=== PATIENT | male | born 1995 | race Caucasian/White ===

== ENCOUNTER 2017-04-30 16:24 | Emergency (ER) | payer BC, OTHER ==
[~2017-04-30] VITALS: Ht 185.4 cm; Wt 80.0 kg
[2017-04-30 16:25] VITALS: BP 155/95; PULSE 63; RESP 15; TEMP 98.6; O2SAT 100
[2017-04-30] MEDS ORDERED: VANCOMYCIN INJ 1,000 MG in SODIUM CHLOR 0.9% 250 ML INJ 250 ML IV ONE (19:30)
[2017-04-30] MEDS ORDERED: BACT800T5 PO (19:36)
[2017-04-30] MEDS ORDERED: CEPH-460 PO (19:36)
--- NOTE | 2017-04-30 19:36 | PD ---
HPI Chief Complaint: Skin Problem Time Seen by Provider: 19:20 Travel History International Travel<30 days: No Contact w/Intl Traveler<30days: No Traveled to known affect area: No History of Present Illness HPI 22-year-old male sent in by his primary care physician for evaluation of left forearm infection. The patient first noticed the area of infection about 2 days ago and states this started out as a small pimple. He squeezed the area and it has become larger. He had a tattoo performed on his left forearm about a month ago and had an abscess to his left elbow shortly after. He is here with report of a wound culture that was performed on 03/01/17 by his primary care physician that grew out MRSA that was sensitive to vancomycin and Bactrim. Pain is moderate, worse with palpation. He denies fevers or chills. No history of IVDU. His primary care physician evaluated him in the office and recommended that he present to the emergency department for evaluation and possible IV antibiotics. PFSH Past Medical History Autoimmune Disease: No Blood Disorders: No Anxiety: No Depression: No Cardiovascular Problems: No Genitourinary: No Headaches: Yes Musculoskeletal: No Neurologic: No Psychiatric: No Respiratory: No Past Surgical History Genitourinary Surgery: Yes (KIDNEY STONE) Other Surgery: Yes Social History Alcohol Use: No Tobacco Use: No Substance Use: No Allergies-Medications (Allergen,Severity, Reaction): Coded Allergies: morphine (Verified Allergy, Unknown, 04/30/17) Reported Meds & Prescriptions Reported Meds & Active Scripts Active Keflex (Cephalexin) 500 Mg Cap 500 Mg PO Q8H Bactrim DS (Sulfamethoxazole-Trimethoprim) 800-160 Mg Tab 1 Tab PO BID 10 Days Review of Systems Except as stated in HPI: all other systems reviewed are Neg Physical Exam Narrative GENERAL: Well-developed, well-nourished, comfortable, no acute distress. SKIN: Left anterior forearm with area of induration, warmth, and erythema proximally with a small pustule at the center, no fluctuance, no red streaks, no crepitus. HEAD: Atraumatic. Normocephalic. EYES: Pupils equal and round. No scleral icterus. No injection or drainage. ENT: Mucous membranes pink and moist. NECK: Trachea midline. No JVD. CARDIOVASCULAR: Regular rate and rhythm. Bilateral distal radial pulses are brisk and equal. No murmur. RESPIRATORY: No accessory muscle use. Clear to auscultation. Breath sounds equal bilaterally. MUSCULOSKELETAL: Skin exam as above. No obvious deformities. No clubbing. No cyanosis. No edema. NEUROLOGICAL: Awake and alert. No obvious cranial nerve deficits. Motor grossly within normal limits. Normal speech. PSYCHIATRIC: Appropriate mood and affect; insight and judgment normal. Data Data Last Documented VS Vital Signs Date Time Temp Pulse Resp B/P (MAP) Pulse Ox O2 Delivery O2 Flow Rate FiO2 04/30/17 16:25 98.6 63 15 155/95 (115) 100 Orders Orders Vancomycin Inj (Vancomycin Inj) (04/30/17 19:30) Diphenhydramine Inj (Benadryl Inj) (04/30/17 20:00) MDM Medical Decision Making Medical Screen Exam Complete: Yes Emergency Medical Condition: Yes Differential Diagnosis Left for cellulitis, left forearm abscess Narrative Course Vital signs show heart rate 63, blood pressure 155/95, pulse ox 100% on room air , oral temp 98.6F. Is a patient with a cellulitis to his left anterior/proximal forearm. This area was evaluated by me using a linear ultrasound probe and shows cobblestoning which is consistent with cellulitis, no drainable fluid collection. Plan is to give the patient a dose of IV vancomycin and to discharge him home with a prescription for Bactrim and Keflex as he had a wound culture to an abscess on his left elbow in February that was sensitive to Bactrim and vancomycin. There are no red streaks on exam. No crepitus. Patient informed to return to the emergency department in 48 hours for a wound check. He was informed on when to return to the emergency Department sooner. He verbalizes understanding and agreement with plan. The patient developed a red man syndrome with vancomycin infusion including erythema and pruritus to his recent scalp. Symptoms resolved after the infusion was stopped. He'll be given a dose of Benadryl and infusion will be restarted at a slower rate. Procedures Procedure Narrative Bedside ultrasound: Using the linear ultrasound probe, an ultrasound was performed to the area of induration to the patient's left anterior/proximal forearm. There was cobblestoning noted which is consistent with cellulitis. No drainable fluid collections seen. Diagnosis Primary Impression: Cellulitis of left forearm Referrals: Primary Care Physician 3 days Additional Instructions: Take antibiotics as prescribed. Follow-up with your primary care physician this week. Return to the emergency department in 48 hours for a wound check. Apply warm compresses to the affected area. Return to the emergency department for worsening symptoms or any other concerns as discussed. Scripts Cephalexin (Keflex) 500 Mg Cap 500 MG PO Q8H for Infection, #30 CAP 0 Refills Prov: Cuate Borges MD 04/30/17 Sulfamethoxazole-Trimethoprim (Bactrim DS) 800-160 Mg Tab 1 TAB PO BID for Infection for 10 Days, #20 TAB 0 Refills Prov: Cuate Borges MD 04/30/17 Disposition: 01 DISCHARGE HOME Condition: Stable Cuate Borges MD Apr 30, 2017 19:36
[2017-04-30] MEDS ORDERED: diphenhydrAMINE HCL 50 MG/ML VIAL IV PUSH ONE (20:00)
== END 2017-04-30 20:45 | disposition home or self-care (01) ==
LOC: NEPD 16:24
DX: L03.114 Cellulitis of left upper limb (principal); L53.9 Erythematous condition, unspecified; Z86.14 Personal history of Methicillin resistant Staphylococcus aureus infection
CPT/HCPCS: 96365; 96375; 99285; J1200; J3370; J7050

== ENCOUNTER 2017-05-02 19:55 | Emergency (ER) | payer BC ==
[~2017-05-02] VITALS: Ht 185.4 cm; Wt 86.0 kg
[~2017-05-02 19:55] MED LIST: BACT800T5 PO; CEPH-460 PO
[2017-05-02 19:56] VITALS: BP 145/86; PULSE 62; RESP 16; TEMP 98.8; O2SAT 97
[2017-05-02] MEDS ORDERED: LIDOCAINE HCL 1% PF 30 ML VIAL ONE (21:23)
--- NOTE | 2017-05-02 21:26 | PD ---
HPI Chief Complaint: Skin Problem Time Seen by Provider: 21:17 Travel History International Travel<30 days: No Contact w/Intl Traveler<30days: No Traveled to known affect area: No History of Present Illness HPI 22-year-old presents to emergency department with a infection to his left forearm for the past week. He was seen by his primary care doctor who cultured out MRSA. He was seen here in the ER 2 days ago was given vancomycin as well as prescription for Bactrim and Keflex. He states that the area has now come to ahead and started draining. He was told to come back and have the procedure done. He states that the area of redness is much improved at the area central swelling has worsened and started to drain. He denies any fever chills. Symptoms are moderate. PFSH Past Medical History Medical History: Denies Significant Hx Autoimmune Disease: No Blood Disorders: No Anxiety: No Depression: No Cardiovascular Problems: No Genitourinary: No Headaches: Yes Musculoskeletal: No Neurologic: No Psychiatric: No Respiratory: No Tetanus Vaccination: < 5 Years Past Surgical History Genitourinary Surgery: Yes (KIDNEY STONE) Other Surgery: Yes Social History Alcohol Use: No Tobacco Use: No Substance Use: No Allergies-Medications (Allergen,Severity, Reaction): Coded Allergies: morphine (Verified Allergy, Unknown, 05/02/17) Reported Meds & Prescriptions Reported Meds & Active Scripts Active Keflex (Cephalexin) 500 Mg Cap 500 Mg PO Q8H Bactrim DS (Sulfamethoxazole-Trimethoprim) 800-160 Mg Tab 1 Tab PO BID 10 Days Review of Systems Except as stated in HPI: all other systems reviewed are Neg General / Constitutional: No: Fever, Chills Eyes: No: Blurred Vision, Photophobia HENT: No: Headaches, Sore Throat Cardiovascular: No: Chest Pain or Discomfort, Palpitations Respiratory: No: Cough, Shortness of Breath Gastrointestinal: No: Nausea, Vomiting Genitourinary: No: Frequency, Dysuria Musculoskeletal: No: Myalgias Skin: Positive Rash, Positive Lesions Neurologic: No: Weakness, Dizziness Physical Exam Narrative GENERAL: This is a well-nourished, well-developed patient, in no apparent distress. SKIN: No rashes, ecchymoses or lesions. Warm and dry. HEAD: Atraumatic. Normocephalic. EYES: PERRL, EOMI, no discharge or injection. No scleral icterus. EARS: Clear NOSE: Nasal turbinates appear normal. THROAT: Mucosa pink and moist. Airway patent. NECK: Trachea midline. supple, moves head freely. LUNGS: Clear to auscultation. CV: Regular in rhythm. ABDOMEN: Soft nontender. EXT: No clubbing cyanosis has a area of erythema, edema, fluctuance and pointing to the left proximal radial forearm. There is a 4 x 4 centimeter abscess with some purulent drainage. Tender to touch. No lymphangitis. Data Data Last Documented VS Vital Signs Date Time Temp Pulse Resp B/P (MAP) Pulse Ox O2 Delivery O2 Flow Rate FiO2 05/02/17 19:56 98.8 62 16 145/86 (105) 97 Room Air MDM Medical Decision Making Medical Screen Exam Complete: Yes Emergency Medical Condition: Yes Medical Record Reviewed: Yes Differential Diagnosis MDM: High Differential diagnoses: Abscess, folliculitis, cellulitis, lymphangitis, abrasion, contact dermatitis Narrative Course An incision and drainage has been performed Procedures Procedure Narrative I&D abscess: After the risks and benefits were discussed the following procedure was performed. The skin is prepped and draped in the usual sterile fashion using Betadine. The abscess is anesthetized with 1% lidocaine. After adequate anesthesia, an 11 blade scalpel is used to make a 3 centimeter central incision. Perulant material is expressed Loculations are broken up using curved Paulette forceps. The wound is cleansed deeply using dilute Betadine and peroxide on Q-tips. The wound is packed open using iodoform gauze. A clean dressing is applied. The patient tolerated the procedure well. There was no complications. Follow-up instructions were given to the patient. Diagnosis Primary Impression: incision and drainage left forearm abscess Patient Instructions: General Instructions Additional Instructions: Rest. Elevation. keep clean and dry. remove the packing in two days. Daily wound care with soap, water and Neosporin. Three Advil every 6 hours. Continue antibiotics to complete Follow-up with a primary care doctor in one week. Return to the ER for any problems. Med/Other Pt SpecificInfo: No Change to Meds, Wound Care Disposition: DISCHARGE HOME Condition: Stable Joselito Lai May 02, 2017 21:26
[2017-05-02] MEDS ORDERED: LIDOCAINE 1%/EPINEPHrine 1:100,000 SOLN 20 ML VIAL INFIL ONE (21:45)
[2017-05-02] MEDS ORDERED: LIDOCAINE HCL 1% 30 ML VIAL INFIL ONE (22:15)
== END 2017-05-02 22:13 | disposition home or self-care (01) ==
LOC: NEPK 19:55
DX: L02.414 Cutaneous abscess of left upper limb (principal); B95.62 Methicillin resistant Staphylococcus aureus infection as the cause of diseases classified elsewhere
CPT/HCPCS: 10061